=== PATIENT | female | born 1995 | race Caucasian/White ===

== ENCOUNTER 2020-11-23 14:13 | Day surgery (SDC) | payer BC, OTHER ==
[~2020-11-23] VITALS: Ht 157.5 cm; Wt 64.3 kg
[2020-11-23] MEDS ORDERED: no home meds per pt (14:56)
[2020-11-23] MEDS ORDERED: CHLORHEXIDINE 15 ML UDC PO ONE (15:00)
[2020-11-23] MEDS ORDERED: LACTATED RINGERS 1,000 ML IV SCH ×2 (15:00)
[2020-11-23] MEDS ORDERED: PLEASE ENTER HEIGHT AND WEIGHT MC SCH (15:00)
[2020-11-23 15:03] VITALS: BP 94/61
[2020-11-23 15:25] LABS: BASOPHILS % (AUTO) 1 % (0-1); EOSINOPHILS % (AUTO) 1 % (1-7); LYMPHOCYTES % (AUTO) 33 % (22-44); MEAN CORPUSCULAR HEMOGLOBIN 33.4 pg (27.0-34.8); MEAN CORPUSCULAR HGB CONC 34.6 g/dL (32.4-35.8); MONOCYTES % (AUTO) 8 % (2-9); NEUTROPHILS % (AUTO) 57 % (42-75); PLATELET COUNT 260 x10^3/uL (130-400); RED BLOOD COUNT 4.44 x10^6/uL (3.82-5.3); RED CELL DISTRIBUTION WIDTH 12.8 % (9.6-15.2)
[2020-11-23 15:26] LABS: MD NO
[2020-11-23] MEDS ORDERED: MISOPROSTOL 200 MCG TABLET ONE (16:49)
[2020-11-23] MEDS ORDERED: METHYLERGONOVINE 0.2 MG/ML IM ONE (16:49)
[2020-11-23] MEDS ORDERED: OXYTOCIN 10 UNITS/ML, 1ML ONE (16:49)
[2020-11-23] MEDS ORDERED: KETOROLAC 30 MG/1 ML ONE (17:09)
[2020-11-23] MEDS ORDERED: CEFAZOLIN 1,000 MG ONE (17:10)
[2020-11-23] MEDS ORDERED: MIDAZOLAM 1 MG/ML, 2ML ONE (17:10)
[2020-11-23] MEDS ORDERED: PROPOFOL 10 MG/ML, 20ML ONE (17:10)
[2020-11-23] MEDS ORDERED: ONDANSETRON 2MG/ML, 2ML ONE (17:10)
[2020-11-23] MEDS ORDERED: FENTANYL PF 250 MCG/5ML ONE (17:10)
[2020-11-23] MEDS ORDERED: DEXAMETHASONE 4 MG/ML, 1ML ONE (17:10)
[2020-11-23] MEDS ORDERED: HYDROmorphone 1 MG/ML, 1ML INJ IVPush PRN (17:30)
[2020-11-23] MEDS ORDERED: MEPERIDINE/PF 25MG/0.5ML IVPush PRN (17:30)
[2020-11-23] MEDS ORDERED: OXYcodone 5 MG/5 ML ORAL.SOL UDC PO PRN (17:30)
[2020-11-23] MEDS ORDERED: HALOPERIDOL 5 MG/ML IV PRN (17:30)
[2020-11-23] MEDS ORDERED: PROMETHAZINE 25 MG/ML, 1ML IVPush PRN (17:30)
[2020-11-23] MEDS ORDERED: ACETAMINOPHEN 325 MG TABLET PO PRN (17:30)
[2020-11-23] MEDS ORDERED: LABETALOL 5MG/ML, 20ML IV PRN (17:30)
[2020-11-23] MEDS ORDERED: FENTANYL PF 100 MCG/2ML IV PRN (17:30)
[2020-11-23] MEDS ORDERED: hydrALAzine 20 MG/ML, 1ML IV PRN (17:30)
[2020-11-23] MEDS ORDERED: morphine SULFATE 10 MG/ML, 1ML IVPush PRN (17:30)
[2020-11-23] MEDS ORDERED: MEPERIDINE/PF 25MG/ML,1ML ONE (18:21)
== END 2020-11-23 20:50 | disposition home or self-care (01) ==
LOC: OR 14:13
PROVIDERS: ATTEND Obstetrics & Gynecology
DX: O02.1 Missed abortion (principal); Z20.822 Contact with and (suspected) exposure to COVID-19; Z91.018 Allergy to other foods
CPT/HCPCS: 36415; 59820; 85025; 86850; 86900; 87635; 88305; J0690; J1100; J1885; J2175; J2250; J2405; J2590; J2704; J3010; J7120; J2210